=== PATIENT | male | born 1985 | race Caucasian/White ===

== ENCOUNTER 2019-09-09 21:16 | Emergency (ER) | payer SELFPAY ==
[~2019-09-09] VITALS: Ht 185.4 cm; Wt 76.4 kg
[2019-09-09 21:23] VITALS: BP 131/67
[2019-09-09] MEDS ORDERED: MORPHINE SULFATE 4 MG/ML SYR IVP ONE (22:00)
[2019-09-09] MEDS ORDERED: KETOROLAC 30 MG/ML VIAL IVP ONE (22:20)
[2019-09-09 22:30] LABS: APPEARANCE,URINE HAZY (CLEAR); BILIRUBIN,URINE NEGATIVE (NEGATIVE); BLOOD, URINE 3+ (NEGATIVE); COLOR,URINE YELLOW (YELLOW); LEUKOCYTE ESTERASE ,URINE NEGATIVE (NEGATIVE); NITRITE, URINE NEGATIVE (NEGATIVE); UGLUCOSE NEGATIVE (NEGATIVE)
[2019-09-09 22:30] LABS: HEMATOCRIT 42.4 % (36-52); HEMOGLOBIN 14.1 g/dL (12.0-18.0); MEAN CORPUSCULAR HEMOGLOBIN 31 pg (27-31); MEAN CORPUSCULAR HGB CONC 33 g/dL (33-37); MEAN CORPUSCULAR VOLUME 92.7 fL (80-94); PLATELET COUNT (AUTO) 191 K/uL (140-450); RED BLOOD CELL COUNT(AUTO) 4.57 MIL/uL (4.20-6.10); RED CELL DISTRIBUTION WIDTH 12.8 % (11.6-13.7); WHITE BLOOD COUNT (AUTO) 12.1 K/uL (4.8-10.8)
[2019-09-09 22:42] LABS: ANION GAP 13.9 (8-16); CARBON DIOXIDE 25.5 mmol/L (21-32); POTASSIUM 3.4 mmol/L (3.5-5.1)
[2019-09-09 22:48] LABS: ALBUMIN 4.5 g/dL (3.4-5.0); TOTAL BILIRUBIN 1.6 mg/dL (0.0-1.0)
[2019-09-09 22:50] LABS: LYMPHOCYTES % (MANUAL) 7 % (20-46); MONOCYTES % (MANUAL) 2 % (5-12)
[2019-09-09 22:55] LABS: RBC,URINE 80-100 /HPF (0-5); WBC,URINE 0-5 /HPF (0-5)
[2019-09-09 23:56] VITALS: BP 117/71
== END 2019-09-09 23:56 | disposition home or self-care (01) ==
LOC: MED 21:16
DX: N20.0 Calculus of kidney (principal); Z90.49 Acquired absence of other specified parts of digestive tract
CPT/HCPCS: 36415; 80053; 81001; 82150; 83690; 85025; 96374; 96375; 99283; J1885; J2270

== ENCOUNTER 2019-09-11 10:19 | Emergency (ER) | payer SELFPAY ==
[~2019-09-11] VITALS: Ht 189.2 cm; Wt 75.9 kg
[2019-09-11 10:25] VITALS: BP 117/76
--- NOTE | 2019-09-11 10:30 | NUR ---
PT AMBULATED TO ER BED 03
--- NOTE | 2019-09-11 11:00 | NUR ---
34 Y/O MALE PRESENTING WITH LEFT SIDED FLANK PAIN. PER PATIENT HAD PAIN THIS MORNING AT 0600 HRS TOOK IBUPROFEN FOR A PAIN SCALE OF 8/10, MEDICATION RELIEVED PAIN, BUT PAIN PERSISTED AT 1000 HRS AND PATIENT TOOK MEDICATION IBUPROFEN AGAIN. PER PATIENT HX OF KIDNEY STONES, CURRENTLY PAIN 8/10. UA OBTAINED. SIDE RAIL X1. DENIES N/V/FEVER, ABD PAIN, DENIES DYSURIA BUT REPORTS PRESSURE WHEN URINATING. FAMILY AT BEDSIDE.
--- NOTE | 2019-09-11 11:11 | NUR ---
DOCTOR AT BEDSIDE EVALUATING PATIENT
[2019-09-11] MEDS ORDERED: NACL 0.9% 1,000 ML IV ONE (11:18)
[2019-09-11] MEDS ORDERED: NACL 0.9% 1,000 ML IV SCH (11:18)
[2019-09-11] MEDS ORDERED: MORPHINE SULFATE 4 MG/ML SYR IVP ONE (11:20)
[2019-09-11] MEDS ORDERED: PROMETHAZINE 25 MG/ML VIAL IM ONE (11:20)
[2019-09-11] MEDS ORDERED: GLYCOPYRROLATE 0.2 MG/ML VIAL IV ONE (11:20)
[2019-09-11] MEDS ORDERED: KETOROLAC 30 MG/ML VIAL IVP ONE (11:20)
--- NOTE | 2019-09-11 11:37 | NUR ---
LAB AT BEDSIDE
[2019-09-11 11:56] LABS: BASOPHILS % (AUTO) 0.2 % (0.0-2.0); HEMATOCRIT 43.2 % (36-52); HEMOGLOBIN 14.4 g/dL (12.0-18.0); LYMPHOCYTES # (AUTO) 0.8 K/uL (2.0-11.5); LYMPHOCYTES % (AUTO) 6.3 % (20.5-51.1); MEAN CORPUSCULAR HEMOGLOBIN 31 pg (27-31); MEAN CORPUSCULAR HGB CONC 33 g/dL (33-37); MEAN CORPUSCULAR VOLUME 93.4 fL (80-94); MONOCYTES # (AUTO) 1.1 K/uL (0.8-1.0); MONOCYTES % (AUTO) 8.4 % (1.7-9.3); NEUTROPHILS # (AUTO) 11.5 K/uL (1.8-7.7); NEUTROPHILS % (AUTO) 85.1 % (42.2-75.2); PLATELET COUNT (AUTO) 211 K/uL (140-450); RED BLOOD CELL COUNT(AUTO) 4.63 MIL/uL (4.20-6.10); RED CELL DISTRIBUTION WIDTH 12.5 % (11.6-13.7); WHITE BLOOD COUNT (AUTO) 13.5 K/uL (4.8-10.8)
[2019-09-11 12:01] LABS: APPEARANCE,URINE SL CLOUDY (CLEAR); BILIRUBIN,URINE NEGATIVE (NEGATIVE); BLOOD, URINE 3+ (NEGATIVE); COLOR,URINE YELLOW (YELLOW); LEUKOCYTE ESTERASE ,URINE NEGATIVE (NEGATIVE); NITRITE, URINE NEGATIVE (NEGATIVE); UGLUCOSE NEGATIVE (NEGATIVE)
--- NOTE | 2019-09-11 12:07 | NUR ---
PT LEFT TO CT VIA WHEELCHAIR
[2019-09-11 12:09] LABS: ANION GAP 14.7 (8-16); CARBON DIOXIDE 28.6 mmol/L (21-32); CREATININE 1.1 mg/dL (0.7-1.3); POTASSIUM 4.3 mmol/L (3.5-5.1)
[2019-09-11 12:14] LABS: ALBUMIN 4.1 g/dL (3.4-5.0); TOTAL BILIRUBIN 2.4 mg/dL (0.0-1.0)
[2019-09-11 12:47] LABS: RBC,URINE 11-20 (MOD) /HPF (0-5); WBC,URINE 0-5 /HPF (0-5)
[2019-09-11 14:38] VITALS: BP 109/69
--- NOTE | 2019-09-11 14:38 | NUR ---
Patient discharged with v/s stable. Written and verbal after care instructions given and explained. Patient alert, oriented and verbalized understanding of instructions. Ambulatory with steady gait. All questions addressed prior to discharge. ID band removed. Patient advised to follow up with PMD. Rx of FLOMAX, BENTYL, TRAMADOL given. Patient educated on indication of medication including possible reaction and side effects. Opportunity to ask questions provided and answered.
== END 2019-09-11 14:38 | disposition home or self-care (01) ==
LOC: MED 10:19
DX: M47.817 Spondylosis without myelopathy or radiculopathy, lumbosacral region (principal); R30.0 Dysuria
CPT/HCPCS: 36415; 74176; 80053; 81001; 82150; 83690; 85025; 96372; 96374; 96375; 99284; J1885; J2270; J2550; J3490; J7030